=== PATIENT | female | born 1970 | race Caucasian/White ===

== ENCOUNTER 2018-06-23 21:19 | Emergency (ER) | payer OTHER ==
[~2018-06-23] VITALS: Ht 154.9 cm; Wt 72.0 kg
[2018-06-23] MEDS ORDERED: HYDROcodone/APAP 5/325 TABLET PO STA (22:00)
[2018-06-23] MEDS ORDERED: HYDROcodone/APAP 5/325 TABLET ONE (22:07)
[2018-06-23] MEDS ORDERED: KETOROLAC 30 MG/1 ML ONE (22:53)
[2018-06-23] MEDS ORDERED: KETOROLAC 60 MG/2 ML IM ONE (23:00)
[2018-06-23 23:23] VITALS: BP 139/84
== END 2018-06-23 23:25 | disposition home or self-care (01) ==
LOC: ED 22:16
DX: S83.412A Sprain of medial collateral ligament of left knee, initial encounter (principal); S83.422A Sprain of lateral collateral ligament of left knee, initial encounter; R51 Headache; X50.1XXA Overexertion from prolonged static or awkward postures, initial encounter; Y93.89 Activity, other specified; Y92.410 Unspecified street and highway as the place of occurrence of the external cause; Y99.8 Other external cause status
CPT/HCPCS: 29505; 73564; 96372; 99283; J1885

== ENCOUNTER 2018-07-03 17:05 | Emergency (ER) | payer OTHER ==
[~2018-07-03] VITALS: Ht 162.6 cm; Wt 73.0 kg
[2018-07-03] MEDS ORDERED: OXYcodone/APAP 5/325MG TABLET PO ONE (17:30)
[2018-07-03] MEDS ORDERED: OXYcodone/APAP 5/325MG TABLET ONE (17:31)
[2018-07-03 19:01] VITALS: BP 119/82
== END 2018-07-03 19:37 | disposition home or self-care (01) ==
LOC: ED 17:26
DX: S83.412A Sprain of medial collateral ligament of left knee, initial encounter (principal); M25.362 Other instability, left knee; X50.1XXA Overexertion from prolonged static or awkward postures, initial encounter; Y93.89 Activity, other specified; Y92.89 Other specified places as the place of occurrence of the external cause; Y99.8 Other external cause status
CPT/HCPCS: 29505; 99283

== ENCOUNTER 2020-08-08 14:37 | Emergency (ER) | payer OTHER ==
[~2020-08-08] VITALS: Ht 160 cm; Wt 69.3 kg
[2020-08-08] MEDS ORDERED: ACETAMINOPHEN 500 MG TABLET ONE (15:04)
--- NOTE | 2020-08-08 15:13 | NUR ---
PT HAS CO ABDOMINAL PAIN, RLQ. N/V. DENIES CHEST PAIN OR RESP DISTRESS, TEST NEG FOR COVID. UA SENT. PIV, MEDICATED.
[2020-08-08 15:23] LABS: MICROSCOPIC AUTO
[2020-08-08] MEDS ORDERED: ACETAMINOPHEN 500 MG TABLET PO ONE (15:30)
[2020-08-08] MEDS ORDERED: SODIUM CHLORIDE 0.9% 1,000ML IVBOLUS ONE ×2 (15:30→16:30)
[2020-08-08 15:32] LABS: BASOPHILS % (AUTO) 1 % (0-1); EOSINOPHILS % (AUTO) 0 % (1-7); LYMPHOCYTES % (AUTO) 15 % (22-44); MEAN CORPUSCULAR HGB CONC 33.3 g/dL (32.4-35.8); MEAN PLATELET VOLUME 8.9 fL (7.4-10.4); MONOCYTES % (AUTO) 5 % (2-9); NEUTROPHILS % (AUTO) 79 % (42-75); PLATELET COUNT 188 x10^3/uL (130-400); RED BLOOD COUNT 5.49 x10^6/uL (3.82-5.3); RED CELL DISTRIBUTION WIDTH 13.4 % (9.6-15.2)
[2020-08-08 15:37] LABS: MD NO
[2020-08-08 15:40] LABS: ALBUMIN 3.6 g/dL (3.4-5.0); ANION GAP 6 mmol/L (5-15); CALCIUM 8.7 mg/dL (8.5-10.1); CHLORIDE 103 mmol/L (98-107)
[2020-08-08 15:45] LABS: ALANINE AMINOTRANSFERASE 77 U/L (12-78); ALKALINE PHOSPHATASE 152 U/L (45-117); BILIRUBIN,TOTAL 0.5 mg/dL (0.2-1.0); CREATININE 0.68 mg/dL (0.55-1.02)
[2020-08-08] MEDS ORDERED: SODIUM CHLORIDE FLUSH 10ML SYR IVF ONE (16:00)
[2020-08-08] MEDS ORDERED: KETOROLAC 30 MG/1 ML IVPush ONE (17:00)
[2020-08-08] MEDS ORDERED: KETOROLAC 30 MG/1 ML ONE (17:01)
--- NOTE | 2020-08-08 17:10 | NUR ---
MEDICATED FOR PAIN. IVF. PT STATES SHE IS FATIGUED AND DIZZY. PT MONITORED. [address]
[2020-08-08] MEDS ORDERED: OMNIPAQUE 350 MG/ML, 100ML BOTTLE ONE (17:55)
[2020-08-08] MEDS ORDERED: AZITHROMYCIN 500 MG TABLET PO ONE (18:30)
[2020-08-08] MEDS ORDERED: CEFTRIAXONE PMX 1GM/50ML 50 ML IV ONE (18:30)
[2020-08-08] MEDS ORDERED: CEFTRIAXONE PMX 1GM/50ML 50 ML ONE (18:38)
[2020-08-08] MEDS ORDERED: AZITHROMYCIN 250 MG TABLET ONE ×2 (18:39→19:26)
--- NOTE | 2020-08-08 18:49 | NUR ---
REPORT TO CHAITANYA
[2020-08-08] MEDS ORDERED: MORPHINE SULFATE 4 MG/ML, 1ML IVPush ONE (19:00)
[2020-08-08] MEDS ORDERED: ONDANSETRON 2MG/ML, 2ML IVPush ONE (19:00)
[2020-08-08] MEDS ORDERED: MORPHINE SULFATE 4 MG/ML, 1ML ONE (19:27)
[2020-08-08] MEDS ORDERED: ONDANSETRON 2MG/ML, 2ML ONE (19:27)
--- NOTE | 2020-08-08 21:17 | NUR ---
PT WILL NOT KEEP ARM STRIGHT TO LET IV RUN TOLD MANY TIMES ......
--- NOTE | 2020-08-08 21:50 | NUR ---
Patient given discharge instructions and they have confirmed that they understand the instructions. Patient ambulatory with steady gait.
[2020-08-08 21:51] VITALS: BP 112/73
== END 2020-08-08 22:05 | disposition home or self-care (01) ==
LOC: ED 16:45
DX: J18.9 Pneumonia, unspecified organism (principal); R10.31 Right lower quadrant pain; C53.9 Malignant neoplasm of cervix uteri, unspecified; R00.0 Tachycardia, unspecified
CPT/HCPCS: 36415; 74177; 80053; 81001; 83605; 84703; 85025; 85379; 87040; 87086; 93005; 96361; 96365; 96366; 96375; 99285; J0696; J1885; J2270; J2405; J7030; Q9967